=== PATIENT | female | born 1940 | race American Indian/Alaskan Native ===

== ENCOUNTER 2019-04-07 20:00 | Inpatient (IN) | payer MEDICARE ==
[2019-04-07] MEDS ORDERED: CATAPRES PO ONE ×2 (20:44→22:34)
[2019-04-07] MEDS ORDERED: ASPIRIN PO ONE (20:44)
--- NOTE | 2019-04-07 20:46 | Emergency Department Report ---
Chief Complaint: Chest Pain Stated Complaint: CHEST PAIN/HIGH BLOOD PRESSURE Time Seen by Provider: 04/07/19 20:41 - HPI History of Present Illness: This is a 78 y.o. F. that presents to the ER with chest pain and elevated blood pressure x 1 week. 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 PMH HTN, DM2, anemia Non-smoker - Exam Vital Signs: Vital Signs 04/07/19 20:19 Temperature 98.1 F Pulse Rate 77 Respiratory 18 Rate Blood Pressure 215/67 O2 Sat by Pulse 97 Oximetry MSE screening note: Focused history and physical exam performed. Due to findings the following was ordered: This initial assessment/diagnostic orders/clinical plan/treatment(s) is/are subject to change based on patient's health status, clinical progression and re-assessment by fellow clinical providers in the ED. Further treatment and workup at subsequent clinical providers discretion. Patient/guardians urged not to elope from the ED as their condition may be serious if not clinically assessed and managed. Initial orders include: 1- Patient sent to [facility] for further evaluation and treatment 2- Labs and CXR ED Disposition for MSE Condition: Stable
[2019-04-07 21:42] LABS: BUN/Creatinine Ratio 20; Blood Urea Nitrogen 14 mg/dL (7-17); Calcium 9.4 mg/dL (8.4-10.2); Hemolysis Index 3
[2019-04-07 21:44] LABS: Basophils # (Auto) 0.1 K/mm3 (0.0-0.1); Basophils % (Auto) 1.1 % (0.0-1.8); Eosinophils # (Auto) 0.2 K/mm3 (0.0-0.4); Eosinophils % (Auto) 3.1 % (0.0-4.3); Hemoglobin 8.6 gm/dl (10.1-14.3); Lymphocytes # (Auto) 1.9 K/mm3 (1.2-5.4); Lymphocytes % (Auto) 27.7 % (13.4-35.0); Mean Corpuscular HGB Conc 32 % (30-34); Mean Corpuscular Volume 72 fl (79-97); Monocytes # (Auto) 0.5 K/mm3 (0.0-0.8); Monocytes % (Auto) 7.7 % (0.0-7.3); Platelet Count 328 K/mm3 (140-440); Red Blood Count 3.74 M/mm3 (3.65-5.03)
[2019-04-07 21:45] LABS: Red Cell Distribution Width 21.9 % (13.2-15.2)
--- NOTE | 2019-04-07 22:35 | XRay Report ---
PROCEDURE: XR CHEST 1V AP TECHNIQUE: Chest radiograph single view. HISTORY: Chest Pain COMPARISONS: None . FINDINGS: Heart: Normal. Mediastinum/Vessels: Normal. Lungs/Pleural space: Normal. Bony thorax: No acute osseous abnormality. Life support devices: None. IMPRESSION: No acute cardiopulmonary abnormality. This document is electronically signed by Jack Britt MD., Apr 07 2019 10:34:05 PM ET
--- NOTE | 2019-04-07 22:45 | Emergency Department Report ---
ED Chest Pain HPI - General Chief Complaint: Chest Pain Stated Complaint: CHEST PAIN/HIGH BLOOD PRESSURE Time Seen by Provider: 04/07/19 20:41 Source: patient Mode of arrival: Ambulatory Limitations: No Limitations - History of Present Illness Initial Comments: 78-year-old female with a past medical history of ayb-ldkxqco-ealrxssbc diabetes, hypertension, anemia, chronic pain secondary to sciatica, and obesity presents to the Hospital complaining of mid chest pain radiating to the left arm 2 days. Pain described as intermittent tightness without exiting or relieving factors. Patient denies chest pain at this time. She has Dyspnea on exertion w hile walking to the mailbox. She is also having intermittent had a left-sided headache with blurred vision earlier today that has since resolved. She denies nausea, vomiting, or focal numbness or weakness. Patient knows the medications that she takes but she does not know the doses. She states losartan/HCTZ, verapamil, Lasix and a.m. and clonidine in the p.m. Last stress test was in 2009. She denies known history of CAD and takes a baby aspirin daily. PMD: Dr. Kaitlynn Mancera. 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 - Related Data Allergies Allergy/AdvReac Type Severity Reaction Status Date / Time No Known Allergies Allergy Verified 04/07/19 20:04 Heart Score - HEART Score History: Slightly suspicious EKG: Non-specific Age: > 65 Risk factors: > 3 risk factors or hx of atherosclerotic disease Troponin: < normal limit HEART Score: 5 ED Review of Systems ROS: Stated complaint: CHEST PAIN/HIGH BLOOD PRESSURE Other details as noted in HPI Comment: All other systems reviewed and negative ED Past Medical Hx - Past Medical History Hx Hypertension: Yes Hx Diabetes: Yes Additional medical history: anemia. sciatica - Surgical History Past Surgical History?: No - Social History Smoking Status: Never Smoker Substance Use Type: None ED Physical Exam - General Limitations: No Limitations - Other Other exam information: General: No limitations, patient is alert in no acute distress Head exam: Atraumatic, normocephalic Eyes exam: Normal appearance ENT: Moist mucous membrane, normal oropharynx Neck exam: Normal inspection, full range of motion, no meningismus nontender Respiratory exam: Clear to auscultation bilateral, no wheezes, rales, crackles Cardiovascular: Normal rate and rhythm, normal heart sounds and chest wall nontender Abdomen: Soft, nondistended, and nontender, with normal bowel sounds, no rebound, or guarding Extremity: Full range of motion normal inspection no deformity, tenderness or edema Back: Normal Inspection, full range of motion, no tenderness Neurologic: Alert, oriented x3, cranial nerves intact, no motor or sensory deficit Psychiatric: normal affect, normal mood Skin: Warm, dry, intact ED Course Vital Signs 04/07/19 04/07/19 04/07/19 20:19 20:42 22:22 Temperature 98.1 F 98.1 F Pulse Rate 77 77 77 Respiratory 18 18 17 Rate Blood Pressure 215/67 215/67 Blood Pressure 223/71 [Right] O2 Sat by Pulse 97 97 96 Oximetry ED Medical Decision Making - Lab Data Result diagrams: 04/07/19 21:11 04/07/19 21:11 Lab Results 04/07/19 04/07/19 Range/Units 21:11 21:11 WBC 6.9 (4.5-11.0) K/mm3 RBC 3.74 (3.65-5.03) M/mm3 Hgb 8.6 L (10.1-14.3) gm/dl Hct 27.0 L (30.3-42.9) % MCV 72 L (79-97) fl MCH 23 L (28-32) pg MCHC 32 (30-34) % RDW 21.9 H (13.2-15.2) % Plt Count 328 (140-440) K/mm3 Lymph % (Auto) 27.7 (13.4-35.0) % Armstrong % (Auto) 7.7 H (0.0-7.3) % Eos % (Auto) 3.1 (0.0-4.3) % Baso % (Auto) 1.1 (0.0-1.8) % Lymph # 1.9 (1.2-5.4) K/mm3 Armstrong # 0.5 (0.0-0.8) K/mm3 Eos # 0.2 (0.0-0.4) K/mm3 Baso # 0.1 (0.0-0.1) K/mm3 Seg Neutrophils % 60.4 (40.0-70.0) % Seg Neutrophils # 4.2 (1.8-7.7) K/mm3 Sodium 140 (137-145) mmol/L Potassium 4.1 (3.6-5.0) mmol/L Chloride 99.1 (98-107) mmol/L Carbon Dioxide 30 (22-30) mmol/L Anion Gap 15 mmol/L BUN 14 (7-17) mg/dL Creatinine 0.7 (0.7-1.2) mg/dL Estimated GFR > 60 ml/min BUN/Creatinine Ratio 20 % Glucose 151 H (65-100) mg/dL Calcium 9.4 (8.4-10.2) mg/dL Troponin T < 0.010 (0.00-0.029) ng/mL - EKG Data -: EKG Interpreted by Me EKG shows normal: sinus rhythm, axis (qrsv 25), QRS complexes (qrsd 84), ST-T waves (no stemi) Rate: normal (80) - EKG Data When compared to previous EKG there are: previous EKG unavailable - Radiology Data Radiology results: report reviewed PROCEDURE: XR CHEST 1V AP TECHNIQUE: Chest radiograph single view. HISTORY: Chest Pain COMPARISONS: None . FINDINGS: Heart: Normal. Mediastinum/Vessels: Normal. Lungs/Pleural space: Normal. Bony thorax: No acute osseous abnormality. Life support devices: None. IMPRESSION: No acute cardiopulmonary abnormality. - Medical Decision Making Plan to admit patient to the hospital for further blood pressure control and workup of chest pain. No sign of ST elevation LA and nitial troponin negative. Clonidine and aspirin ordered. Hospitalist informed - Differential Diagnosis LA, unstable angina, hypertensive emergency Critical Care Time: No Critical care attestation.: If time is entered above; I have spent that time in minutes in the direct care of this critically ill patient, excluding procedure time. ED Disposition Clinical Impression: Chest pain, Uncontrolled hypertension, Intermittent headache Disposition: OP ADMIT IP TO THIS HOSP Is pt being admited?: Yes Does the pt Need Aspirin: Yes Condition: Stable Time of Disposition: 22:44 (Dr Mancera)
[2019-04-07] MEDS ORDERED: ASPIRIN ONE (22:49)
[2019-04-08] MEDS ORDERED: ZOFRAN IV PRN (00:39)
[2019-04-08] MEDS ORDERED: SODIUM CHLORIDE FLUSH SYRINGE 10 ML IV PRN (00:39)
[2019-04-08] MEDS ORDERED: D50W (25GM) Syringe IV PRN (00:39)
[2019-04-08] MEDS ORDERED: TYLENOL PO PRN (00:39)
--- NOTE | 2019-04-08 00:46 | History and Physical Report ---
History of Present Illness Date of examination: 04/07/19 History of present illness: 78-year-old woman with a history of hypertension, diabetes, grossly emergency room complains of blood pressure being too high. Also complaining of chest pain in the epigastric area which she describes a dull pain, intermittent temperature minutes, intensity 4/10, no radiation, cannot identify exacerbating or relieving factors. Denies nausea vomiting, shortness, diaphoresis or palpitation. Also complaining of a headache Review of systems Constitutional: no weight loss, chills, fever Ears, eyes, nose, mouth and throat: no nasal congestion, no nasal discharge, no sinus pressure, no vision change, no red eye. Neck: No neck pain or rigidity. Cardiovascular: no palpitations Respiratory: no cough, shortness of breath Gastrointestinal: no hematochezia, abdominal pain Genitourinary : no frequency , no hematuria Musculoskeletal: no joint swelling or muscle ache Integumentary: no rash, no pruritis Neurological: no parathesias, no focal weakness Endocrine: no cold or heat intolerance, no polyuria or polydipsia Hematologic/Lymphatic: no easy bruising, no easy bleeding, no gland swelling Allergic/Immunologic: no urticaria, no angioedema. PAST MEDICAL HISTORY: hypertension, diabetes PAST SURGICAL HISTORY: None SOCIAL HISTORY: Denies alcohol, drugs, tobacco FAMILY HISTORY: Hypertension Medications and Allergies Allergies Allergy/AdvReac Type Severity Reaction Status Date / Time No Known Allergies Allergy Verified 04/07/19 20:04 Home Medications Medication Instructions Recorded Confirmed Last Taken Type Duloxetine (Nf) [Cymbalta] 20 mg PO DAILY 04/08/19 04/10/19 Unknown History ALPRAZolam [Xanax TAB] 1 mg PO BID PRN #60 tablet 04/10/[address] [Voltaren Dr] 50 mg PO BID 04/10/19 04/10/19 Unknown History Furosemide [Lasix TAB] 40 mg PO QDAY #30 tablet 04/10/19 Unknown Rx Gabapentin [Neurontin] 800 mg PO TID 04/10/19 04/10/19 Unknown History Ibuprofen [Motrin 800 MG tab] 800 mg PO Q8HR PRN #30 tablet 04/10/19 Unknown Rx Lisinopril [Zestril TAB] 40 mg PO QDAY #30 tablet 04/10/19 Unknown Rx Losartan/Hydrochlorothiazide 1 each PO DAILY #30 tablet 04/10/19 Unknown Rx [Losartan-Hctz 100-25 mg Tab] Omeprazole 40 mg PO DAILY #30 capsule. 04/10/19 Unknown Rx Pantoprazole [Protonix TAB] 40 mg PO DAILY #30 tablet 04/10/19 Unknown Rx Potassium Chloride [K-Dur] 20 meq PO QDAY #30 tablet 04/10/19 Unknown Rx Verapamil ER [Calan SR] 240 mg PO DAILY #30 tablet 04/10/19 Unknown Rx amLODIPine [Norvasc] 10 mg PO QDAY #30 tablet 04/10/19 Unknown Rx cloNIDine [Catapres] 0.2 mg PO Q8H #90 tablet 04/10/19 Unknown Rx glipiZIDE [Glucotrol] 5 mg PO QAMDIAB #30 tablet 04/10/19 Unknown Rx metFORMIN [Glucophage] 500 mg PO BID #60 tablet 04/10/19 Unknown Rx oxyCODONE /ACETAMINOPHEN [Percocet 1 tab PO Q6H PRN #15 tablet 04/10/19 Unknown Rx 5/325 mg] Active Meds: Active Medications Acetaminophen (Tylenol) 650 mg PO Q4H PRN PRN Reason: Pain MILD(1-3)/Fever >100.5/YOUNG Dextrose (D50w (25gm) Syringe) 50 ml IV PRN PRN PRN Reason: Hypoglycemia Enoxaparin Sodium (Lovenox) 30 mg SUB-Q QDAY FAUSTINO Hydralazine HCl (Apresoline) 5 mg IV Q6H PRN PRN Reason: Hypertension Ondansetron HCl (Zofran) 4 mg IV Q8H PRN PRN Reason: Nausea And Vomiting Oxycodone/Acetaminophen (Percocet 5/325) 1 tab PO Q6H PRN PRN Reason: Pain, Moderate (4-6) Sodium Chloride (Sodium Chloride Flush Syringe 10 Ml) 10 ml IV BID FAUSTINO Sodium Chloride (Sodium Chloride Flush Syringe 10 Ml) 10 ml IV PRN PRN PRN Reason: LINE FLUSH Exam - Physical Exam Narrative exam: General Apperance: The patient lying in bed, breathing comfortable HEENT: Normocephalic, atraumatic. Pupils equally round and reactive to light, EOMI, no sclericterus or JVD or thyromegaly or nodule. , no carotid bruit, mucous membranes moist, no exudate or erythema Heart: S1-S2, regular is rhythm Lungs: Clear to auscultation bilaterally, breathing comfortable Abdomen: Positive bowel sounds, soft, nontender, nondistended, no organomegaly Extremities: No edema cyanosis clubbing Skin: no rash, nodule, warm and dry Neuro: cranial nerves 2-12 intact, speech is fluent, motor/sensory intact - Constitutional Vitals: Temp Pulse Resp BP Pulse Ox 98.1 F 65 15 177/68 97 04/07/19 20:42 04/07/19 23:51 04/07/19 23:51 04/07/19 23:51 04/07/19 23:51 Results - Labs CBC & Chem 7: 04/08/19 03:24 04/08/19 03:24 Labs: Abnormal lab results 04/07/19 04/07/19 Range/Units 21:11 21:11 Hgb 8.6 L (10.1-14.3) gm/dl Hct 27.0 L (30.3-42.9) % MCV 72 L (79-97) fl MCH 23 L (28-32) pg RDW 21.9 H (13.2-15.2) % Desha % (Auto) 7.7 H (0.0-7.3) % Glucose 151 H (65-100) mg/dL - Imaging and Cardiology EKG: image reviewed Chest x-ray: report reviewed Assessment and Plan Assessment Hypertensive urgency, maliganant Chest pain Headache Diabetes type 2 Plan Admit to medicine Check cardiac enzymes, stress test IV hydralazine for blood pressure control Obtain CT had, check fingersticks and initiate insulin sliding scale DVT prophylaxis, oxycodone for pain
[2019-04-08] MEDS: APRESOLINE IV PRN ×2 (01:00→02:06)
[2019-04-08] MEDS ORDERED: APRESOLINE ONE ×2 (01:01→02:00)
--- NOTE | 2019-04-08 01:44 | Cat Scan Report ---
PROCEDURE: CT HEAD/BRAIN WO CON TECHNIQUE: Computerized tomography of the head was performed without contrast material. HISTORY: Headache. COMPARISONS: None . FINDINGS: Skull and scalp: Normal . Paranasal sinuses: No air-fluid levels. Ventricles and subarachnoid spaces: Normal . Cerebrum: No evidence of hemorrhage, acute infarction or mass . Mild, subcortical periventricular wh ite matter variable white matter changes. Cerebellum and brainstem: No evidence of hemorrhage, acute infarction or mass . Vasculature: Atherosclerotic vascular calcifications. IMPRESSION: 1. No acute intracranial process. 2. Aging brain morphology. This document is electronically signed by Noman Alejandra DO., Apr 08 2019 01:42:10 AM ET
[2019-04-08] MEDS ORDERED: NITRO-BID 2% TP ONE ×2 (01:58→02:00)
[2019-04-08 03:43] LABS: Basophils # (Auto) 0.1 K/mm3 (0.0-0.1); Basophils % (Auto) 1.1 % (0.0-1.8); Eosinophils # (Auto) 0.2 K/mm3 (0.0-0.4); Eosinophils % (Auto) 3.3 % (0.0-4.3); Hemoglobin 8.8 gm/dl (10.1-14.3); Lymphocytes # (Auto) 1.3 K/mm3 (1.2-5.4); Lymphocytes % (Auto) 21.5 % (13.4-35.0); Mean Corpuscular HGB Conc 31 % (30-34); Mean Corpuscular Volume 72 fl (79-97); Monocytes # (Auto) 0.4 K/mm3 (0.0-0.8); Monocytes % (Auto) 6.5 % (0.0-7.3); Platelet Count 338 K/mm3 (140-440); Red Blood Count 3.89 M/mm3 (3.65-5.03)
[2019-04-08 03:57] LABS: Red Cell Distribution Width 21.6 % (13.2-15.2)
[2019-04-08 04:04] LABS: BUN/Creatinine Ratio 20; Blood Urea Nitrogen 12 mg/dL (7-17); Calcium 9.5 mg/dL (8.4-10.2); Hemolysis Index 6
[2019-04-08] MEDS ORDERED: LEXISCAN IV ONE ×2 (09:42)
[2019-04-08] MEDS ORDERED: LOVENOX SUB-Q SCH (10:00)
[2019-04-08] MEDS ORDERED: NON-FORMULARY (Omeprazole [Omeprazole] 40 MG) PO SCH (13:00)
[2019-04-08] MEDS ORDERED: GLUCOTROL PO ONE (13:17)
--- NOTE | 2019-04-08 13:21 | Progress Note ---
Assessment and Plan Assessment and plan: 78-year-old woman with a history of hypertension, diabetes, c/o high bp and chest pain PAST MEDICAL HISTORY: hypertension, diabetes cp due to htn urgency optimize bp meds stress test neg DM -cont glipizide, and added ssi dvt ppx lovenox Hospitalist Physical - Constitutional Vitals: Temp Pulse Resp BP Pulse Ox 98.8 F 101 H 20 196/81 97 04/08/19 11:45 04/08/19 11:45 04/08/19 11:45 04/08/19 11:45 04/08/19 11:45 Results - Labs CBC & Chem 7: 04/08/19 03:24 04/08/19 03:24 Labs: Laboratory Last Values WBC 6.0 K/mm3 (4.5-11.0) 04/08/19 03:24 RBC 3.89 M/mm3 (3.65-5.03) 04/08/19 03:24 Hgb 8.8 gm/dl (10.1-14.3) L 04/08/19 03:24 Hct 28.0 % (30.3-42.9) L 04/08/19 03:24 MCV 72 fl (79-97) L 04/08/19 03:24 MCH 23 pg (28-32) L 04/08/19 03:24 MCHC 31 % (30-34) 04/08/19 03:24 RDW 21.6 % (13.2-15.2) H 04/08/19 03:24 Plt Count 338 K/mm3 (140-440) 04/08/19 03:24 Lymph % (Auto) 21.5 % (13.4-35.0) 04/08/19 03:24 Petroleum % (Auto) 6.5 % (0.0-7.3) 04/08/19 03:24 Eos % (Auto) 3.3 % (0.0-4.3) 04/08/19 03:24 Baso % (Auto) 1.1 % (0.0-1.8) 04/08/19 03:24 Lymph # 1.3 K/mm3 (1.2-5.4) 04/08/19 03:24 Petroleum # 0.4 K/mm3 (0.0-0.8) 04/08/19 03:24 Eos # 0.2 K/mm3 (0.0-0.4) 04/08/19 03:24 Baso # 0.1 K/mm3 (0.0-0.1) 04/08/19 03:24 Seg Neutrophils % 67.6 % (40.0-70.0) 04/08/19 03:24 Seg Neutrophils # 4.1 K/mm3 (1.8-7.7) 04/08/19 03:24 Sodium 140 mmol/L (137-145) 04/08/19 03:24 Potassium 3.5 mmol/L (3.6-5.0) L 04/08/19 03:24 Chloride 99.3 mmol/L (98-107) 04/08/19 03:24 Carbon Dioxide 28 mmol/L (22-30) 04/08/19 03:24 16 mmol/L 04/08/19 03:24 BUN 12 mg/dL (7-17) 04/08/19 03:24 0.6 mg/dL (0.7-1.2) L 04/08/19 03:24 Estimated GFR > 60 ml/min 04/08/19 03:24 20 % 04/08/19 03:24 Glucose 148 mg/dL (65-100) H 04/08/19 03:24 POC Glucose 223 (70-105) H 04/08/19 11:53 Calcium 9.5 mg/dL (8.4-10.2) 04/08/19 03:24 < 0.010 ng/mL (0.00-0.029) 04/08/19 03:24 Active Medications - Current Medications Current Medications: Generic Name Dose Route Start Last Admin Trade Name Freq PRN Reason Stop Dose Admin Acetaminophen 650 mg 04/08/19 00:39 Tylenol PO Q4H PRN Pain MILD(1-3)/Fever >100.5/YOUNG Alprazolam 1 mg 04/08/19 12:43 Xanax PO BID PRN Anxiety Dextrose 50 ml 04/08/19 00:39 D50w (25gm) Syringe IV PRN PRN Hypoglycemia Enoxaparin Sodium 40 mg 04/08/19 10:00 Lovenox SUB-Q QDAY@1000 FAUSTINO Glipizide 5 mg 04/09/19 08:00 Glucotrol PO QAMDIAB FAUSTINO Glipizide 5 mg 04/08/19 13:17 Glucotrol PO 04/08/19 13:18 ONCE ONE Hydralazine HCl 10 mg 04/08/19 12:29 Apresoline IV Q4HR PRN BP >160/100 Labetalol HCl 10 mg 04/08/19 12:29 Normodyne IV Q4H PRN BP >170/105; hold for HR <60 Lisinopril 40 mg 04/08/19 13:00 Zestril PO QDAY [facility] Miscellaneous Medication 20 mg 04/08/19 13:00 Duloxetine Hcl [Cymbalta] PO DAILY [facility] Ondansetron HCl 4 mg 04/08/19 00:39 Zofran IV Q8H PRN Nausea And Vomiting Oxycodone/Acetaminophen 1 tab 04/08/19 00:39 Percocet 5/325 PO Q6H PRN Pain, Moderate (4-6) Pantoprazole Sodium 40 mg 04/08/19 13:00 Protonix PO DAILY [facility] Sodium Chloride 10 ml 04/08/19 10:00 Sodium Chloride Flush Syringe 10 Ml IV BID [facility] Sodium Chloride 10 ml 04/08/19 00:39 Sodium Chloride Flush Syringe 10 Ml IV PRN PRN LINE FLUSH Verapamil HCl 240 mg 04/08/19 13:00 Calan Sr PO DAILY [facility]
[2019-04-08] MEDS: ZESTRIL PO SCH (13:34)
[2019-04-08] MEDS: PROTONIX PO SCH (13:34)
[2019-04-08] MEDS: LOVENOX SUB-Q SCH (13:39)
[2019-04-08] MEDS: NORMODYNE IV PRN (13:40)
[2019-04-08] MEDS: SODIUM CHLORIDE FLUSH SYRINGE 10 ML IV SCH ×2 (13:42→21:55)
[2019-04-08] MEDS: CALAN SR PO SCH (14:07)
[2019-04-08] MEDS: GLUCOTROL PO SCH (14:08)
[2019-04-08] MEDS: NON-FORMULARY (Duloxetine Hcl [Cymbalta] 20 MG) PO SCH (21:54)
[2019-04-08] MEDS: PERCOCET 5/325 PO PRN (21:55)
[2019-04-08] MEDS: XANAX PO PRN (21:55)
[2019-04-08] MEDS ORDERED: PROCARDIA XL PO SCH (22:00)
[2019-04-08] MEDS: HumaLOG SUB-Q SCH (22:08)
--- NOTE | 2019-04-09 03:46 | Treadmill Report ---
INDICATION: Chest pain. ORDERING PHYSICIAN: Wendy Mancera MD FINDINGS: There is no scintigraphic evidence for myocardial ischemia. The left ventricle is normal in size and systolic function. The left ventricular ejection fraction is measured at 62%. There is normal wall motion and wall thickening on gated imaging. CONCLUSION: Normal perfusion scan. JOB# [id number] BRYON/NTS
[2019-04-09] MEDS: APRESOLINE IV PRN ×2 (05:22→20:40)
[2019-04-09] MEDS: NORMODYNE IV PRN ×3 (08:04→22:35)
[2019-04-09] MEDS: PERCOCET 5/325 PO PRN ×2 (08:12→16:08)
[2019-04-09] MEDS: GLUCOTROL PO SCH (08:31)
[2019-04-09] MEDS: HumaLOG SUB-Q SCH ×5 (08:45→22:37)
[2019-04-09] MEDS: XANAX PO PRN ×2 (10:28→22:34)
[2019-04-09] MEDS: NON-FORMULARY (Duloxetine Hcl [Cymbalta] 20 MG) PO SCH (10:29)
[2019-04-09] MEDS: CALAN SR PO SCH (10:32)
[2019-04-09] MEDS: LOVENOX SUB-Q SCH (10:32)
[2019-04-09] MEDS: ZESTRIL PO SCH (10:33)
[2019-04-09] MEDS: PROTONIX PO SCH (10:51)
[2019-04-09] MEDS ORDERED: APRESOLINE IV ONE ×2 (14:16→15:00)
[2019-04-09] MEDS: SODIUM CHLORIDE FLUSH SYRINGE 10 ML IV SCH ×2 (18:52→22:37)
[2019-04-09] MEDS: NORVASC PO SCH (22:39)
[2019-04-10] MEDS: APRESOLINE IV PRN ×3 (00:57→10:52)
[2019-04-10] MEDS: PERCOCET 5/325 PO PRN (02:29)
[2019-04-10] MEDS: NORMODYNE IV PRN (02:29)
[2019-04-10] MEDS: NORVASC PO SCH (10:50)
[2019-04-10] MEDS: NON-FORMULARY (Duloxetine Hcl [Cymbalta] 20 MG) PO SCH (10:50)
[2019-04-10] MEDS: PROTONIX PO SCH (10:51)
[2019-04-10] MEDS: CALAN SR PO SCH (10:51)
[2019-04-10] MEDS: LOVENOX SUB-Q SCH (10:52)
[2019-04-10] MEDS: ZESTRIL PO SCH (10:52)
[2019-04-10] MEDS: SODIUM CHLORIDE FLUSH SYRINGE 10 ML IV SCH (10:52)
[2019-04-10] MEDS: GLUCOTROL PO SCH (10:52)
[2019-04-10] MEDS: HumaLOG SUB-Q SCH ×2 (10:53→13:20)
[2019-04-10 15:29] VITALS: BP 200/82
--- NOTE | 2019-04-10 15:47 | Progress Note ---
Assessment and Plan CP ---Stress Htn urgency BP meds--optimized stress test neg DM -cont glipizide, and added ssi dvt ppx lovenox Subjective Date of service: 04/09/19 Principal diagnosis: HTN emergency Interval history: CP--resolved Objective - Constitutional Vitals: Vital Signs - 12hr 04/10/19 04/10/19 04/10/19 05:11 07:48 10:50 Temperature 98.6 F 98.7 F Pulse Rate 90 94 H 94 H Respiratory 18 18 Rate Blood Pressure 174/64 185/67 185/67 O2 Sat by Pulse 94 97 Oximetry 04/10/19 04/10/19 04/10/19 10:51 10:52 12:25 Temperature Pulse Rate 111 H Respiratory Rate Blood Pressure 185/67 185/67 200/82 O2 Sat by Pulse 96 Oximetry General appearance: Present: no acute distress, well-nourished - EENT Eyes: PERRL, EOM intact ENT: hearing intact, clear oral mucosa Ears: bilateral: normal - Neck Neck: supple, normal ROM - Respiratory Respiratory effort: normal Respiratory: bilateral: CTA - Breasts Breasts: normal - Cardiovascular Rhythm: regular Heart Sounds: Present: S1 & S2. Absent: gallop, rub Extremities: no ischemia, pulses intact, No edema, normal color, Full ROM - Gastrointestinal General gastrointestinal: Present: soft, non-tender, non-distended, normal bowel sounds - Genitourinary Female genitourinary: normal - Integumentary Integumentary: clear, warm, dry - Musculoskeletal Musculoskeletal: 1, strength equal bilaterally - Neurologic Neurologic: moves all extremities - Psychiatric Psychiatric: memory intact, appropriate mood/affect, intact judgment & insight - Allied health notes Allied health notes reviewed: nursing, social work - Labs CBC & Chem 7: 04/08/19 03:24 04/08/19 03:24 Labs: Abnormal lab results 04/09/19 04/09/19 04/10/19 Range/Units 17:16 21:46 07:58 POC Glucose 156 H 153 H 171 H (70-105) 04/10/19 Range/Units 12:28 POC Glucose 167 H (70-105)
--- NOTE | 2019-04-10 15:56 | Discharge Summary ---
Providers - Providers Date of Admission: 04/09/19 11:10 Date of discharge: 04/10/19 Attending physician: VADIM SHEIKH 04/08/19 13:22 Consult to Dietitian/Nutrition [CONS] Routine Physician Instructions: Reason For Exam: Reason for Consult: Diet education Primary care physician: S[employer] PIPE [employer]ER Hospitalization Condition: Stable Hospital course: CP Htn urgency---resolved optimized bp meds stress test neg DM Cont glipizide Dvt ppx lovenox Disposition: DC- TO HOME OR SELFCARE Core Measure Documentation - Palliative Care Palliative Care/ Comfort Measures: Not Applicable - Core Measures Any of the following diagnoses?: none Exam - Constitutional Vitals: Temp Pulse Resp BP Pulse Ox 98.7 F 111 H 18 140/80 96 04/10/19 07:48 04/10/19 12:25 04/10/19 07:48 04/10/19 12:25 04/10/19 12:25 General appearance: Present: no acute distress, well-nourished - EENT Eyes: Present: PERRL ENT: hearing intact, clear oral mucosa - Neck Neck: Present: supple, normal ROM - Respiratory Respiratory effort: normal Respiratory: bilateral: CTA - Cardiovascular Heart rate: 78 Rhythm: regular Heart Sounds: Present: S1 & S2. Absent: rub, click - Extremities Extremities: no ischemia, pulses intact, pulses symmetrical, No edema Peripheral Pulses: within normal limits - Abdominal General gastrointestinal: Present: soft, non-tender, non-distended, normal bowel sounds Female genitourinary: Present: normal - Rectal Rectal Exam: deferred - Integumentary Integumentary: Present: clear, warm, dry - Musculoskeletal Musculoskeletal: gait normal, strength equal bilaterally - Psychiatric Psychiatric: appropriate mood/affect, intact judgment & insight - Neurologic Neurologic: CNII-XII intact, moves all extremities - Allied Health Allied health notes reviewed: nursing, case management Plan Activity: no restrictions Diet: low fat, low cholesterol, low salt, diabetic Follow up with: PRIMARY CARE, [Primary Care Provider] - 7 Days
== END 2019-04-10 16:57 | disposition home or self-care (01) | DRG 305 ==
LOC: ED 20:00 → 4A 04-08 00:39 → OBSVTOIN 04-09 11:10
PROVIDERS: ADMIT Internal Medicine; ATTEND Internal Medicine
DX: I16.0 Hypertensive urgency (principal); E11.9 Type 2 diabetes mellitus without complications; Z82.49 Family history of ischemic heart disease and other diseases of the circulatory system; Z79.01 Long term (current) use of anticoagulants; Z79.84 Long term (current) use of oral hypoglycemic drugs; Z79.899 Other long term (current) drug therapy
CPT/HCPCS: 36415; 70450; 71045; 78452; 80048; 82962; 84484; 85025; 93005; 93010; 93017; 96374; G0378; A9502; J0360; J1650; J1815; J2785